=== PATIENT | female | born 1990 ===

== ENCOUNTER 2021-09-30 07:54 | Outpatient (REF) | payer OTHER, SELFPAY ==
[2021-09-30 11:29] LABS: MANUAL DIFF FLAG NO
[2021-09-30 11:42] LABS: Basophils Percent Auto 0.2 % (0-2); Eosinophils Absolute Auto 0.1 X10*3/uL (0.0-0.4); Eosinophils Percent Auto 1.9 % (0-4); Hematocrit 42.4 % (37.0-47.0); Hemoglobin 13.9 g/dl (12.0-16.0); Imm Gran Abs Auto 0.03 X10*3/uL (0.00-0.03); Imm Gran Pct Auto 0.5 % (0.0-0.4); Lymphocytes Absolute Auto 1.9 X10*3/uL (1.2-4.9); Lymphocytes Percent Auto 30.4 % (20-40); Mean Corpuscular HGB Conc 32.8 g/dl (31.0-35.0); Mean Corpuscular Volume 88.5 fL (80.0-98.0); Mean Platelet Volume 11.4 fL (9.4-12.3); Monocytes Absolute Auto 0.5 X10*3/uL (0.1-1.2); Monocytes Percent Auto 7.9 % (2-11); Neutrophils Absolute Auto 3.7 x10*3/uL (2.0-8.3); Neutrophils Percent Auto 59.1 % (45-73); Platelet Count 288 X10*3/uL (160-400); Red Blood Count 4.79 X10*6/uL (4.20-5.50); Red Cell Distribution Width 12.9 % (11.0-16.0); White Blood Count 6.2 X10*3/uL (4.8-10.8)
[2021-09-30 12:16] LABS: Alanine Aminotransferase 13 U/L (0-31); Alkaline Phosphatase 78 U/L (39-117); Anion Gap 10 (12-20); Aspartate Amino Transferase 14 U/L (5-31); Bilirubin Total 0.6 mg/dL (0.0-1.0); Blood Urea Nitrogen 12 mg/dL (9-16); Calcium 8.8 mg/dL (8.4-10.2); Carbon Dioxide 26 mmol/L (22-29); Chloride 108 mmol/L (96-108); Cholesterol 203 mg/dL; Estimated Glomerular Filt Rate > 60; Glucose Fasting 105 mg/dL (60-99); HDL Cholesterol 47 mg/dL; LDL Cholesterol Calculated 134 mg/dl; Potassium 4.3 mmol/L (3.3-5.1); Sodium 140 mmol/L (135-145); Total Protein 6.7 g/dL (6.5-8.0); Triglycerides 111 mg/dL
[2021-09-30 12:18] LABS: Thyroid Stimulating Hormone 1.46 uIU/mL (0.32-4.0)
[2021-10-04 13:40] LABS: Vitamin D 25-OH, D2 <4 ng/mL; Vitamin D 25-OH, D3 29 ng/mL; Vitamin D 25-OH, Total 29 ng/mL (30-100)
== END 2021-09-30 07:55 | disposition home or self-care (01) ==
LOC: HO.HMGCLDS 07:54
PROVIDERS: Visit Provider Internal Medicine
DX: Z00.00 Encounter for general adult medical examination without abnormal findings (principal); M25.50 Pain in unspecified joint; E55.9 Vitamin D deficiency, unspecified; E66.3 Overweight; E78.5 Hyperlipidemia, unspecified
CPT/HCPCS: 36415; 80053; 80061; 82306; 84443; 85025

== ENCOUNTER → 2021-11-05 10:49 | Outpatient (BNVA) | payer OTHER, SELFPAY | PROVIDERS: PCP Internal Medicine; Visit Provider Surgery Vascular Surgery | DX: I83.11 Varicose veins of right lower extremity with inflammation (principal) | CPT/HCPCS: 99202 ==

== ENCOUNTER 2021-12-04 08:29 | Outpatient (REF) | payer OTHER, SELFPAY ==
[2021-12-04 14:32] LABS: CT PCR NOT DETECTED (Not Detect.); NG PCR NOT DETECTED (Not Detect.)
[2021-12-05 11:01] LABS: BV Int Neg Control Negative (Negative)
[2021-12-05 11:02] LABS: BV Int Pos Control Positive (Positive)
[2021-12-07 13:02] LABS: HPV mRNA E6/E7 rflx Not Detected (Not Detected)
== END 2021-12-04 08:30 | disposition home or self-care (01) ==
LOC: HO.LAB 08:29
PROVIDERS: PCP Internal Medicine; Visit Provider Advanced Practice Midwife
DX: Z01.419 Encounter for gynecological examination (general) (routine) without abnormal findings (principal); Z80.3 Family history of malignant neoplasm of breast; Z20.2 Contact with and (suspected) exposure to infections with a predominantly sexual mode of transmission; Z11.3 Encounter for screening for infections with a predominantly sexual mode of transmission; Z79.899 Other long term (current) drug therapy
CPT/HCPCS: 87480; 87491; 87510; 87591; 87624; 87660; 88142

== ENCOUNTER 2021-12-13 09:10 | Outpatient (REF) | payer OTHER, SELFPAY ==
--- NOTE | ~2021-12-13 | MM_ITS ---
EXAMINATION: MM SCREENING DIGITAL BREAST TOMOSYNTHESIS, BILATERAL CLINICAL INFORMATION: Screening. Asymptomatic. Prior outside mammography from [place] currently unavailable. Family history breast cancer, mother (age 46). The lifetime risk of breast cancer based on the Tyrer-Cuzick Model is 17%. COMPARISON: None. TECHNIQUE: Digital breast tomosynthesis is performed in both the craniocaudal and mediolateral oblique views along with computer-aided detection (CAD). Synthesized 2D images are generated from the tomosynthesis. FINDINGS: There are scattered areas of fibroglandular density (ACR BI-RADS breast composition Category b). There are no significant masses, abnormal calcifications, or other abnormalities. There is no architectural abnormality. The axilla and skin contours are unremarkable. MM/MM tomosynthesis screening BI IMPRESSION: No mammographic evidence of malignancy. ASSESSMENT: BI-RADS 1: Negative RECOMMENDATION: Routine annual mammography screening by age 36 or earlier as clinical risk factors warrant. This patient's information was entered into a reminder system with a target due date for their next mammogram.
== END 2021-12-13 09:11 | disposition home or self-care (01) ==
LOC: HO.MAMMO 09:10
PROVIDERS: Visit Provider Advanced Practice Midwife
DX: Z12.31 Encounter for screening mammogram for malignant neoplasm of breast (principal); Z80.3 Family history of malignant neoplasm of breast
CPT/HCPCS: 77063; 77067

== ENCOUNTER 2021-12-19 10:33 | Outpatient (REF) | payer OTHER, SELFPAY ==
--- NOTE | ~2021-12-19 | US_ITS ---
EXAMINATION: US LOWER EXTREMITY VENOUS (REFLUX EXAM), BILATERAL CLINICAL INDICATION: This is a 31-year-old female with venous insufficiency and varicose veins. COMPARISON: None. TECHNIQUE: Color flow triplex imaging and compression Doppler was performed to evaluate both the deep and the superficial systems bilaterally. To evaluate the superficial system, the examination was performed in the upright position. Color-flow Doppler ultrasound and compression ultrasound were utilized. In addition, maneuvers were utilized to demonstrate reflux. FINDINGS: 1. DEEP VENOUS ULTRASOUND OF THE RIGHT LOWER EXTREMITY: Common Femoral Vein: Compressible, normal respiratory variation and augmented flow. Femoral vein: Compressible, normal color flow and augmentation. Popliteal Vein: Compressible, normal augmentation. Deep Reflux: There is no evidence of reflux in the deep system in either the common femoral vein or the popliteal vein. There is no evidence of a Reaves's cyst. 2. SUPERFICIAL ULTRASOUND WITH DOPPLER OF RIGHT LOWER EXTREMITY: GREAT SAPHENOUS VEIN: Saphenofemoral Junction: 0.5 cm. There is no reflux. Mid Thigh: 0.4 cm. The reflux time is 2804 ms. Above Knee: 0.2 cm. There is no reflux Below Knee: 0.3 cm. The reflux time is 2692 ms. Mid Calf: 0.2 cm. There is no reflux. Ankle: 0.2 cm. The reflux time is 2840 ms. GSV REFLUX: There is no reflux at the saphenofemoral junction. However, there is reflux in the proximal thigh and mid thigh. DUPLICATED GREAT SAPHENOUS VEIN: None SMALL SAPHENOUS VEIN: Proximal: 0.1 cm. The reflux time is 440 ms. Distal: 0.1 cm. There is no reflux. SSV REFLUX: There is reflux at the saphenofemoral junction but not distally. VEIN OF GIACOMINI: None Imaged. PERFORATORS: There are 0.2 cm mid thigh perforators without reflux. There is a 0.1 cm proximal calf medical coding technician without reflux VARICOSITIES: There is a 0.3 cm mid thigh varicose vein with 2640 ms of reflux. 3. DEEP VENOUS ULTRASOUND OF THE LEFT LOWER EXTREMITY: Common Femoral Vein: Compressible, normal respiratory variation and augmented flow. There is a bifurcating femoral vein present. Femoral Vein: Compressible, normal color flow and augmentation. Popliteal Vein: Compressible, normal augmentation. Deep Reflux: There is no evidence of reflux in the deep system in either the common femoral vein or the popliteal vein. There is no evidence of a Reaves's cyst. 4. SUPERFICIAL ULTRASOUND WITH DOPPLER OF LEFT LOWER EXTREMITY: GREAT SAPHENOUS VEIN: Saphenofemoral Junction: 0.5 cm. There is no reflux. Mid Thigh: 0.3 cm. The reflux time is 2948 ms. Above Knee: 0.4 cm. There is no reflux. Below Knee: 0.2 cm. There is no reflux. Mid Calf: 0.2 cm. There is no reflux. Ankle: 0.2 cm. There is no reflux. GSV REFLUX: There is no reflux at the saphenofemoral junction. There is isolated reflux in the mid thigh. DUPLICATED GREAT SAPHENOUS VEIN: There is a 0.3 cm duplicated lateral great saphenous vein without reflux. SMALL SAPHENOUS VEIN: Proximal: 0.1 cm. The reflux time is 2840 ms. Distal: 0.1 cm. The reflux time is 3120 ms. SSV REFLUX: There is reflux in the small saphenous vein. VEIN OF GIACOMINI: There is a 0.3 cm vein with 2660 ms of reflux. PERFORATORS: There are 0.2 cm perforators without reflux. VARICOSITIES: There are varicose veins off the vein of GIACOMINI measuring 0.3 cm with 3000 164 ms of reflux. These varicose veins reflux and traveled on the posterior calf. US/US venous duplex LE BI IMPRESSION: 1. There is a patent right great saphenous vein without reflux at the junction. The reflux begins in the proximal thigh and the mid thigh. There are also isolated segments below as described. 2. There is a patent right small saphenous vein with reflux at the junction. 3. There are varicose veins present as described on the right. 4. There is a patent left great saphenous vein without reflux in the saphenofemoral junction and proximal thigh. There is isolated reflux in the mid thigh. 5. There is a patent duplicated left lateral great saphenous vein without reflux. 6. There is a patent left small saphenous vein with greater than 2 seconds of reflux at the saphenopopliteal junction. 7. There are varicose veins off of the vein of GIACOMINI with reflux.
== END 2021-12-19 10:34 | disposition home or self-care (01) ==
LOC: HO.US 10:33
PROVIDERS: Visit Provider Surgery Vascular Surgery
DX: I83.11 Varicose veins of right lower extremity with inflammation (principal)
CPT/HCPCS: 93970

== ENCOUNTER → 2022-01-21 15:20 | Outpatient (BNVA) | payer OTHER, SELFPAY | PROVIDERS: PCP Internal Medicine; Visit Provider Surgery Vascular Surgery | DX: I83.11 Varicose veins of right lower extremity with inflammation (principal) | CPT/HCPCS: 99212 ==

== ENCOUNTER → 2022-02-21 07:38 | Outpatient (BNVA) | payer OTHER, SELFPAY | PROVIDERS: PCP Internal Medicine; Visit Provider Surgery Vascular Surgery | DX: I83.11 Varicose veins of right lower extremity with inflammation (principal) | CPT/HCPCS: 36482 ==

== ENCOUNTER → 2022-04-22 10:04 | Outpatient (BNVA) | payer OTHER, SELFPAY | PROVIDERS: PCP Internal Medicine; Visit Provider Surgery Vascular Surgery | DX: I83.11 Varicose veins of right lower extremity with inflammation (principal) | CPT/HCPCS: 99212 ==

== ENCOUNTER 2022-06-18 11:30 | Outpatient (REF) | payer OTHER, SELFPAY ==
--- NOTE | ~2022-06-18 | XR_ITS ---
EXAMINATION: BILATERAL KNEE X-RAY CLINICAL INFORMATION: Pain COMPARISON: None TECHNIQUE: 3 views of each knee FINDINGS: Bone alignment is normal. No fracture or dislocation. Normal joint spaces. No joint effusion. XR/XR knee RT 3V IMPRESSION: Normal knees.
--- NOTE | ~2022-06-18 | XR_ITS ---
EXAMINATION: BILATERAL KNEE X-RAY CLINICAL INFORMATION: Pain COMPARISON: None TECHNIQUE: 3 views of each knee FINDINGS: Bone alignment is normal. No fracture or dislocation. Normal joint spaces. No joint effusion. XR/XR knee LT 3V IMPRESSION: Normal knees.
--- NOTE | ~2022-06-18 | XR_ITS ---
EXAMINATION: XR HAND, RIGHT CLINICAL INFORMATION: Reason for Exam M77.8 - Other enthesopathies, not elsewhere classified COMPARISON: None TECHNIQUE: PA, lateral, and oblique views of the right hand. FINDINGS: The bones and soft tissues are normal. No fracture. Alignment is anatomic. Joint spaces are maintained. No erosions or soft tissue calcifications. XR/XR hand RT min 3V IMPRESSION: Normal right hand.
[2022-06-18 14:50] LABS: Erythrocyte Sedimentation Rate 2 MM/HR (0-20)
[2022-06-18 15:12] LABS: Creatinine Urine 103.03 mg/dL; Protein/Creatinine Ratio, Ur 0.08 (<0.2); Total Protein Urine Random 8 mg/dL (<12)
[2022-06-19 14:48] LABS: SM/Ribonucleoprotein Ab <1.0 NEG AI (<1.0 NEG); Smith Protein <1.0 NEG AI (<1.0 NEG)
[2022-06-19 21:43] LABS: Complement C3 109 mg/dL (83-193)
[2022-06-22 15:13] LABS: Anti Nuclear Antibody Screen NEGATIVE (NEGATIVE)
== END 2022-06-18 11:31 | disposition home or self-care (01) ==
LOC: HO.10HDL 11:30
PROVIDERS: PCP Internal Medicine; Visit Provider Internal Medicine Rheumatology
DX: M25.561 Pain in right knee (principal); M25.562 Pain in left knee; M77.8 Other enthesopathies, not elsewhere classified; R76.8 Other specified abnormal immunological findings in serum; M25.50 Pain in unspecified joint
CPT/HCPCS: 36415; 73130; 73562; 84156; 85652; 86038; 86039; 86140; 86160; 86235; 99202

== ENCOUNTER 2022-09-03 09:57 | Outpatient (REF) | payer OTHER, SELFPAY | END 2022-09-03 09:58 | disposition home or self-care (01) | LOC: CF 09:57 | PROVIDERS: PCP Internal Medicine; Visit Provider Internal Medicine | DX: K21.9 Gastro-esophageal reflux disease without esophagitis (principal); K59.00 Constipation, unspecified; R11.10 Vomiting, unspecified; R79.89 Other specified abnormal findings of blood chemistry | CPT/HCPCS: 99202 ==

== ENCOUNTER 2022-09-05 09:00 | Outpatient (REF) | payer OTHER, SELFPAY ==
[2022-09-05 11:28] LABS: MANUAL DIFF FLAG NO
[2022-09-05 11:39] LABS: Basophils Percent Auto 0.2 % (0-2); Eosinophils Percent Auto 0.9 % (0-4); Hematocrit 41.3 % (37.0-47.0); Hemoglobin 13.9 g/dl (12.0-16.0); Imm Gran Abs Auto 0.03 X10*3/uL (0.00-0.03); Imm Gran Pct Auto 0.7 % (0.0-0.4); Lymphocytes Absolute Auto 1.4 X10*3/uL (1.2-4.9); Lymphocytes Percent Auto 31.1 % (20-40); Mean Corpuscular HGB Conc 33.7 g/dl (31.0-35.0); Mean Corpuscular Hemoglobin 28.7 pg (27.0-33.0); Mean Corpuscular Volume 85.3 fL (80.0-98.0); Mean Platelet Volume 10.8 fL (9.4-12.3); Monocytes Absolute Auto 0.4 X10*3/uL (0.1-1.2); Monocytes Percent Auto 9.1 % (2-11); Neutrophils Absolute Auto 2.6 x10*3/uL (2.0-8.3); Platelet Count 291 X10*3/uL (160-400); Red Blood Count 4.84 X10*6/uL (4.20-5.50); Red Cell Distribution Width 13.1 % (11.0-16.0); White Blood Count 4.4 X10*3/uL (4.8-10.8)
[2022-09-05 12:37] LABS: Vitamin D 25-OH Total 40.8 ng/mL (>30)
[2022-09-08 16:34] LABS: Immunoglobulin A 191 mg/dL (47-310)
[2022-09-12 13:58] LABS: Transglutaminase IgA <1.0 U/mL
== END 2022-09-05 09:01 | disposition home or self-care (01) ==
LOC: HO.HMGCLDS 09:00
PROVIDERS: Visit Provider Internal Medicine
DX: K21.9 Gastro-esophageal reflux disease without esophagitis (principal); E55.9 Vitamin D deficiency, unspecified
CPT/HCPCS: 36415; 82306; 82784; 85025; 86364; 87338

== ENCOUNTER 2022-09-25 09:01 | Outpatient (REF) | payer OTHER, SELFPAY ==
--- NOTE | ~2022-09-25 | US_ITS ---
EXAMINATION: US ABDOMEN COMPLETE CLINICAL INFORMATION: Vomiting, unspecified. COMPARISON: None available. TECHNIQUE: Real-time imaging of the abdominal viscera. FINDINGS: PANCREAS: Normal. ABDOMINAL AORTA: The proximal, mid, and distal segments are normal in caliber. INFERIOR VENA CAVA: Visualized portions are normal. LIVER: Normal. The liver is normal in size. The liver contour is normal. Parenchymal echogenicity is normal. No focal hepatic lesion. There is no intrahepatic biliary duct dilatation seen. GALLBLADDER: Normal. The gallbladder is physiologically distended without evidence of stones, sludge, polyps, wall thickening or pericholecystic fluid. COMMON BILE DUCT: Normal in caliber measuring 0.41 cm in diameter. RIGHT KIDNEY: Normal. No hydronephrosis. No renal calculi or focal parenchymal lesions. The kidney measures 11.0 cm in maximum dimension. LEFT KIDNEY: Normal. No hydronephrosis. No renal calculi or focal parenchymal lesions. The kidney measures 10.9 cm in maximum dimension. SPLEEN: Normal. The spleen measures 8.2 cm in maximum dimension. FREE FLUID: None. US/US abdomen complete IMPRESSION: Negative study.
== END 2022-09-25 09:02 | disposition home or self-care (01) ==
LOC: HO.HMGCX 09:01
PROVIDERS: PCP Internal Medicine; Visit Provider Internal Medicine
DX: R11.10 Vomiting, unspecified (principal)
CPT/HCPCS: 76700

== ENCOUNTER → 2022-12-03 09:59 | Outpatient (BNVA) | payer OTHER, SELFPAY | PROVIDERS: PCP Internal Medicine; Visit Provider Internal Medicine | DX: K21.9 Gastro-esophageal reflux disease without esophagitis (principal); R11.10 Vomiting, unspecified | CPT/HCPCS: 99212 ==

== ENCOUNTER → 2022-12-08 09:27 | Outpatient (BNVA) | payer OTHER, SELFPAY | PROVIDERS: PCP Internal Medicine; Visit Provider Advanced Practice Midwife ==

== ENCOUNTER 2023-09-24 10:24 | Outpatient (AMB) | payer OTHER, SELFPAY ==
[2023-09-24 10:25] VITALS: BP 110/62; BMI 24.4
--- NOTE | 2023-09-24 10:25 | MHC.PC.OV ---
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: No Accompanied by: Self / Same As Patient Allergies No Known Allergies Allergy (Verified 09/24/23 10:54) Medication List - Last Reconciled 09/24/23 by Norma Beavers MD No Known Home Meds Tobacco use date assessed: 09/24/23 Dental Screening Dental Screen Date: 09/24/23 Did you have a dental visit in the last 12 months?: Yes Did you have a dental problem in the last 6 months where you did not have access to dental care?: No Was dental information given to patient?: Patient has dentist HPI HPI Comments History of Present Illness Details This is a 33-year-old female that comes today complaining of skin lesions in left arm and upper back that are pruritic and bleed. She is asking for a referral for Dermatology. No chest pain or shortness of breath. Also needs OBGYN referral even though she already has an appointment due to insurance purposes. [facility] Medical History (Updated 09/24/23 @ 11:00 by Norma Beavers MD) Chronic GERD Venous (peripheral) insufficiency Polyarthralgia Physical exam Jaw pain Overweight (BMI 25.0-29.9) Surgical History History of section Family History Mother Breast cancer, Onset Age: 46 Father Diabetes mellitus Social History Housing: Condominium Alcohol intake: current Alcohol intake frequency: a few times a month Alcohol type: beer and hard liquor Patient Tobacco Use Status: Never used Tobacco e-Cigarette/Vaping Use: Never Used Second Hand Smoke Exposure: No service: No Current occupational status: employed Current occupational exposures/hazards: No Cognitive needs: No Hearing needs: No Vision needs: No Female Reproductive History Menstrual Age of Menarche: 12 Questionnaire PHQ-9 Over the last 2 weeks, how often have you been bothered by any of the following problems? 1. Little interest or pleasure in doing things: not at all 2. Feeling down, depressed, or hopeless: not at all 3. Trouble falling or staying asleep, or sleeping too much: not at all 4. Feeling tired or having little energy: not at all 5. Poor appetite or overeating: not at all 6. Feeling bad about yourself - or that you are a failure or have let yourself or your family down: not at all 7. Trouble concentrating on things, such as reading the newspaper or watching television: not at all 8. Moving or speaking so slowly that other people could have noticed. Or the opposite - being so fidgety or restless that you have been moving around a lot more than usual: not at all 9. Thoughts that you would be better off or of hurting yourself in some way: not at all Total score: 0 Depression Screening Interpretation: Negative Depression Screening Done: Yes 11339 - PHQ-9 Billing: Yes Source: Developed by Drs. Raj Mast, Susana Liang, Dwight Greenfield and colleagues, with an educational emerita from [employer]. Thrive Questionnaire Date Thrive assessed: 09/24/23 I am a: Patient What is your living situation today?: I have a steady place to live Within the past 12 months, did the food you bought not last and you didn't have the money to get more?: Never true Within the past 12 months, did you worry whether your food would run out before you got money to buy more?: Never true Do you have trouble paying for medicines?: No Do you have trouble getting transportation to medical appointments?: No Do you have trouble paying your heating and electricity bill?: No Do you have trouble taking care of your child, family member or friend?: No Do you have trouble with day-to-day activities such as bathing, preparing meals, shopping, managing finances, etc.?: No Are you currently unemployed and looking for a job?: No Are you interested in more education?: No Please select the resources that you would like help with: None Currently or been in a relationship where the following occur: no concerns reported THRIVE Score: 0 AUDIT C Alcohol Use Questionnaire (AUDIT-C) 1. How often do you have a drink containing alcohol?: Monthly or less 2. How many drinks containing alcohol do you have on a typical day when you are drinking?: 1 or 2 3. How often do you have six or more drinks on one occasion?: Never Total Score: 1 EDNA-7 AMB Questionnaire EDNA-7 Date EDNA - 7 assessed: 09/24/23 Feeling nervous, anxious, or on edge: 0 = Not at all Not being able to stop or control worryin = Not at all Worrying too much about different things: 0 = Not at all Trouble relaxin = Not at all Being so restless that it is hard to sit still: 0 = Not at all Becoming easily annoyed or irritable: 0 = Not at all Feeling afraid as if something awful might happen: 0 = Not at all Total EDNA-7 score (0-4 normal; 5-9 mild; 10-14 moderate; 15-21 severe): 0 Source: Developed by Drs. Raj Mast, Susana Liang, Dwight Greenfield and colleagues, with an educational emerita from [employer]. EDNA-7 Assessment Billing EDNA-7 Assessment Tool: EDNA-7 Assessment 07191 Review of Systems Const All systems reviewed & are unremarkable except as noted in HPI and below Eyes Reports no additional complaints, Denies change in vision and Denies other visual disturbances Card Denies chest pain at rest, Denies chest pain with activity, Denies edema, Denies irregular heart rhythm, Denies claudication, Denies dyspnea, Denies dyspnea on exertion, Denies orthopnea, Denies paroxysmal nocturnal dyspnea and Denies slow heart rate Resp Denies cough, Denies dyspnea and Denies dyspnea on exertion GI Denies abdominal pain, Denies change in bowel habits, Denies excessive flatus, Denies nausea and Denies vomiting Denies urinary incontinence, Denies urinary hesitancy and Denies urinary urgency Musc Denies atrophy, Denies deformity and Denies limited range of motion Skin/Breast Denies bleeding lesions, Denies changing lesions and Denies rash Physical exam (Primary Care) Vital Signs: Last Vital Signs BP 110/62 09/24/23 10:25 BMI result Body Mass Index 24.4 Tobacco/Smoking Status: Tobacco use Status Tobacco use date assessed 09/24/23 09/24/23 10:33 Patient Tobacco Use Status Never used Tobacco 09/24/23 10:33 e-Cigarette/Vaping Use Never Used 09/24/23 10:33 PHQ-9: PHQ-9 Score PHQ-9: Total score 0 09/24/23 11:04 Depression Screening Interpretation: Negative Thrive Assessment: Date of Thrive Assessment Date Thrive assessed 09/24/23 09/24/23 10:33 Currently or been in a relationship where the following occur: no concerns reported Neck Neck: Yes normal visual inspection and Yes supple Resp Effort & Inspection: normal respiratory effort Auscultation: clear to auscultation bilaterally Cardio Jugular venous distension: no JVD Rate: regular rate Rhythm: regular rhythm Heart sounds: S1 normal heart sound present and S2 normal heart sound present Extrem General: Yes full ROM Assessment and Plan Assessment & Plan (1) Skin lesion: Code(s): L98.9 - Disorder of the skin and subcutaneous tissue, unspecified Plan: Referred to dermatology. Orders: Orders Vitamin D 25-OH Total Today E55.9 - Vitamin D deficiency, unspecified Comprehensive [place]. Panel Fast Today K21.9 - Gastro-esophageal reflux disease without esophagitis Complete Blood Count Auto Diff Today K21.9 - Gastro-esophageal reflux disease without esophagitis Lipid Panel Today E78.5 - Hyperlipidemia, unspecified Referrals Dermatology Referral L98.9 - Disorder of the skin and subcutaneous tissue, unspecified PASTRY ARTIST Referral Z01.419 - Encounter for gynecological examination (general) (routine) without abnormal findings Coding Level of Care Code Est Pt Level 3 (67777) Diagnoses Skin lesion L98.9 Additional Codes EDNA-7 Assessment Billing - EDNA-7 Assessment Tool: EDNA-7 Assessment 30019 ([id number]) Time Spent (min) 18
== END 2023-09-24 11:05 | disposition home or self-care (01) ==
PROVIDERS: PCP Internal Medicine; Visit Provider Internal Medicine
DX: L98.9 Disorder of the skin and subcutaneous tissue, unspecified (principal)
CPT/HCPCS: 99213

== ENCOUNTER 2023-11-20 07:58 | Outpatient (REF) | payer OTHER, SELFPAY ==
[2023-11-20 10:32] LABS: MANUAL DIFF FLAG NO
[2023-11-20 10:36] LABS: Basophils Percent Auto 0.2 % (0-2); Eosinophils Absolute Auto 0.1 X10*3/uL (0.0-0.4); Eosinophils Percent Auto 1.5 % (0-4); Hematocrit 37.4 % (37.0-47.0); Hemoglobin 12.2 g/dl (12.0-16.0); Imm Gran Abs Auto 0.02 X10*3/uL (0.00-0.03); Imm Gran Pct Auto 0.5 % (0.0-0.4); Lymphocytes Absolute Auto 1.6 X10*3/uL (1.2-4.9); Lymphocytes Percent Auto 39.4 % (20-40); Mean Corpuscular HGB Conc 32.6 g/dl (31.0-35.0); Mean Corpuscular Hemoglobin 26.4 pg (27.0-33.0); Mean Platelet Volume 10.9 fL (9.4-12.3); Monocytes Absolute Auto 0.4 X10*3/uL (0.1-1.2); Monocytes Percent Auto 8.9 % (2-11); Neutrophils Percent Auto 49.5 % (45-73); Platelet Count 279 X10*3/uL (160-400); Red Blood Count 4.62 X10*6/uL (4.20-5.50); Red Cell Distribution Width 13.6 % (11.0-16.0); White Blood Count 4.1 X10*3/uL (4.8-10.8)
[2023-11-20 11:26] LABS: Alanine Aminotransferase 15 U/L (0-31); Albumin Level 3.9 g/dL (3.5-5.0); Alkaline Phosphatase 63 U/L (39-117); Anion Gap 11 (12-20); Aspartate Amino Transferase 16 U/L (5-31); Bilirubin Total 0.4 mg/dL (0.0-1.0); Blood Urea Nitrogen 11 mg/dL (9-16); Calcium 8.5 mg/dL (8.4-10.2); Carbon Dioxide 25 mmol/L (22-29); Chloride 107 mmol/L (96-108); Cholesterol 235 mg/dL (<200); Estimated Glomerular Filt Rate > 60; Glucose Fasting 95 mg/dL (60-99); HDL Cholesterol 58 mg/dL (>40); LDL Cholesterol Calculated 163 mg/dL (<100); Potassium 4.4 mmol/L (3.3-5.1); Sodium 139 mmol/L (135-145); Total Protein 6.6 g/dL (6.5-8.0); Triglycerides 71 mg/dL (<150); Vitamin D 25-OH Total 41.9 ng/mL (>30)
== END 2023-11-20 07:59 | disposition home or self-care (01) ==
LOC: HO.HMGCLDS 07:58
PROVIDERS: PCP Internal Medicine; Visit Provider Internal Medicine
DX: E55.9 Vitamin D deficiency, unspecified (principal); K21.9 Gastro-esophageal reflux disease without esophagitis; E78.5 Hyperlipidemia, unspecified
CPT/HCPCS: 36415; 80053; 80061; 82306; 85025

== ENCOUNTER 2023-12-16 15:47 | Outpatient (AMB) | payer OTHER, SELFPAY ==
[2023-12-16 15:50] VITALS: BP 110/62; BMI 24.5
--- NOTE | 2023-12-16 15:50 | A.OFFPC_ITS ---
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 Last Pap smear was 2021 and was normal. No chest pain or shortness on breath. Doing well. [facility] Medical History (Updated 12/16/23 @ 16:30 by Norma Beavers MD) Physical exam Chronic GERD Venous (peripheral) insufficiency Polyarthralgia Jaw pain Overweight (BMI 25.0-29.9) Surgical History Skin lesion History of section Family History Mother Breast cancer, Onset Age: 46 Father Diabetes mellitus Social History Housing: Condominium Alcohol intake: current Alcohol intake frequency: a few times a month Alcohol type: beer and hard liquor Patient Tobacco Use Status: Never used Tobacco e-Cigarette/Vaping Use: Never Used Second Hand Smoke Exposure: No service: No Current occupational status: employed Current occupational exposures/hazards: No Cognitive needs: No Hearing needs: No Vision needs: No Female Reproductive History Menstrual Age of Menarche: 12 Questionnaire Thrive Questionnaire Date Thrive assessed: 09/24/23 EDNA-7 AMB Questionnaire EDNA-7 Date EDNA - 7 assessed: 09/24/23 Source: Developed by Drs. Raj Mast, Susana Liang, Dwight Greenfield and colleagues, with an educational emerita from [employer]. Review of Systems Const All systems reviewed & are unremarkable except as noted in HPI and below Eyes Reports no additional complaints, Denies change in vision and Denies other visual disturbances Card Denies chest pain at rest, Denies chest pain with activity, Denies edema, Denies irregular heart rhythm, Denies claudication, Denies dyspnea, Denies dyspnea on exertion, Denies orthopnea, Denies paroxysmal nocturnal dyspnea and Denies slow heart rate Resp Denies cough, Denies dyspnea and Denies dyspnea on exertion Neuro Denies lack of coordination Physical exam (Primary Care) Vital Signs: Last Vital Signs BP 110/62 12/16/23 15:50 BMI result Body Mass Index 24.5 Tobacco/Smoking Status: Tobacco use Status Tobacco use date assessed 09/24/23 12/16/23 15:54 Patient Tobacco Use Status Never used Tobacco 12/16/23 15:54 e-Cigarette/Vaping Use Never Used 12/16/23 15:54 Thrive Assessment: Date of Thrive Assessment Date Thrive assessed 09/24/23 12/16/23 15:54 Const Orientation/consciousness: patient oriented x3 HENMT Head: Yes normal to inspection, Yes normocephalic and Yes atraumatic Ears: external ears normal Eyes General: appearance normal, both eyes and all related structures Eyelids: Yes eyelids normal Conjunctivae: conjunctivae normal Neck Neck: Yes normal visual inspection and Yes supple Resp Effort & Inspection: normal respiratory effort Auscultation: clear to auscultation bilaterally Cardio Jugular venous distension: no JVD Rate: regular rate Rhythm: regular rhythm Heart sounds: S1 normal heart sound present and S2 normal heart sound present GI Inspection: Yes normal to inspection Palpation (GI): Soft to palpation and nontender Auscultation: normal bowel sounds Skin General skin exam: no rashes or lesions noted Neuro General: patient oriented x3 and no focal motor deficits Extrem General: Yes full ROM Psych Appearance: grossly normal Assessment and Plan Assessment & Plan (1) Encounter for annual physical exam: Code(s): Z00. - Encounter for general adult medical examination without abnormal findings (2) Physical exam: Code(s): Z00.00 - Encounter for general adult medical examination without abnormal findings Plan: Repeat in a year. Coding Level of Care Code Est Pt Prev Care 18-39y(75691) Diagnoses Encounter for annual physical exam Z00. Physical exam Z00.00 Time Spent (min) 31
== END 2023-12-16 16:09 | disposition home or self-care (01) ==
PROVIDERS: PCP Internal Medicine; Visit Provider Internal Medicine
DX: Z00.00 Encounter for general adult medical examination without abnormal findings (principal)
CPT/HCPCS: 99395

== ENCOUNTER 2024-09-23 09:49 | Outpatient (AMB) | payer OTHER, SELFPAY ==
--- NOTE | 2024-09-23 09:54 | A.OFFVIS_ITS ---
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 Complaining of left breast lump with no associated nipple discharge and urinary frequency, no incontinence or dysuria Last Pap/HPV was negative in 12/25 [facility] Medical History Physical exam Chronic GERD Venous (peripheral) insufficiency Polyarthralgia Jaw pain Overweight (BMI 25.0-29.9) Surgical History Skin lesion History of section Family History Mother Breast cancer, Onset Age: 46 Father Diabetes mellitus [facility] Alcohol intake: current Alcohol intake frequency: a few times a month Alcohol type: beer and hard liquor Patient Tobacco Use Status: Never used Tobacco e-Cigarette/Vaping Use: Never Used Second Hand Smoke Exposure: No service: No Current occupational status: employed Current occupational exposures/hazards: No Cognitive needs: No Hearing needs: No Vision needs: No Female Reproductive History Menstrual Age of Menarche: 12 Date of last pap smear: 12/05/21 Review of Systems Const All systems reviewed & are unremarkable except as noted in HPI and below Card Reports as per HPI Resp Reports as per HPI GI Reports as per HPI and Reports no additional complaints Reports as per HPI Physical Exam Const General: cooperative, healthy appearing and comfortable Chest Chest palpation & inspection: normal inspection of the chest and normal palpation of entire chest wall Breast/axilla inspection: normal inspection of the breasts and normal inspection of the axillae Breast/axilla palpation: palpation of the breasts abnormal (R breast wnl, L breast 1 cm lump a 3 o'clock 3 cm from nipple), normal palpation of the axillae and no axillary lymphadenopathy Resp Effort & Inspection: normal respiratory effort Auscultation: clear to auscultation bilaterally Percussion: percussion normal Cardio Palpation: normal PMI Rate: regular rate Rhythm: regular rhythm Heart sounds: no murmurs and no rubs Peripheral pulses: Peripheral pulses 2+ throughout GI Inspection: Yes normal to inspection Palpation (GI): Soft to palpation, nontender, no guarding, not rigid and No hepatosplenomegaly present Percussion: Yes normal to percussion Auscultation: normal bowel sounds Rectal Exam - Female: deferred General: Yes bladder normal to palpation External Female Exam: No lesion Speculum Exam - Vagina: normal appearance of the vagina, normal palpation, normal vaginal discharge and not erythematous Speculum Exam - Cervix: normal appearance of the cervix and normal palpation Bimanual exam- vagina & uterus: normal bimanual exam, normal palpation, uterine size normal, bladder normal to palpation, consistency normal and normal palpation Bimanual Exam- Adnexa, other: normal adnexae, no masses and no tenderness Assessment & Plan Assessment & Plan (1) Well woman exam: Code(s): Z01.419 - Encounter for gynecological examination (general) (routine) without abnormal findings Category: Medical Plan: Cotesting done. Counseled the patient about the recommended dietary allowance of 1000 mg of Calcium & 600 IU of vitamin D. The patient was instructed to perform monthly self-breast exams and to schedule an annual exam in a year; All questions answered and the patient verbalized understanding. Instructed the patient to schedule annual exam in a year (2) Breast lump on left side at 3 o'clock position: Comment: 3 cm from the nipple Code(s): N63.25 - Unspecified lump in the left breast, overlapping quadrants Category: Medical Plan: Discussed with the patient the finding on Breast exam (breast lump) .The differential diagnosis includes but not limited to lump/cyst/pre cancer/cancer or dense breast tissue. The work up includes breast US and diagnostic mammogram and referred the patient for surgical breast consult. Instructed the patient to call our office back in case a referral appointment is not scheduled, missed or canceled so that we will assist on rescheduling another appointment, the patient verbalized understanding agreed with the plan. (3) Urinary frequency: Code(s): R35.0 - Frequency of micturition Category: Medical Plan: Urine dip done in the office was negative. Instructions given the patient to call in case symptoms persist. Orders: Orders MM tomosynthesis diagnostic BI Today N63.25 - Unspecified lump in the left breast, overlapping quadrants US breast LT complete Today N63.25 - Unspecified lump in the left breast, overlapping quadrants Referrals General Surgery Referral N63.25 - Unspecified lump in the left breast, overlapping quadrants Coding Level of Care Code New Pt Prev Care 18-39yr(99505 Diagnoses Well woman exam Z01.419 Breast lump on left side at 3 o'clock position N63.25 Urinary frequency R35.0
== END 2024-09-23 10:41 | disposition home or self-care (01) ==
LOC: HO.HWS 09:49
PROVIDERS: PCP Internal Medicine; Visit Provider Obstetrics & Gynecology
DX: Z01.419 Encounter for gynecological examination (general) (routine) without abnormal findings (principal); N63.25 Unspecified lump in the left breast, overlapping quadrants; R35.0 Frequency of micturition
CPT/HCPCS: 99385; 99459

== ENCOUNTER → 2024-09-23 09:49 | Outpatient (BNVA) | payer OTHER, SELFPAY | PROVIDERS: PCP Internal Medicine; Visit Provider Obstetrics & Gynecology | DX: Z01.419 Encounter for gynecological examination (general) (routine) without abnormal findings (principal); N63.25 Unspecified lump in the left breast, overlapping quadrants; R35.0 Frequency of micturition | CPT/HCPCS: 99385; 99459 ==

== ENCOUNTER → 2024-12-01 10:30 | Outpatient (BNV) | payer OTHER, SELFPAY | PROVIDERS: PCP Internal Medicine; Visit Provider Internal Medicine | DX: N63.25 Unspecified lump in the left breast, overlapping quadrants (principal) | CPT/HCPCS: 76642 ==

== ENCOUNTER 2024-12-01 10:34 | Outpatient (REF) | payer OTHER, SELFPAY ==
--- NOTE | ~2024-12-01 | US_ITS ---
EXAMINATION: US DIAGNOSTIC ULTRASOUND BREAST, LEFT CLINICAL INFORMATION: History 4-year-old female with lateral left breast lump. Patient refused mammogram today.. COMPARISON: Comparison is made with relevant prior imaging. TECHNIQUE: Ultrasound of the breast is performed with real-time spence scale imaging and color Doppler. FINDINGS: Targeted color Doppler ultrasound scanning in the area the patient's palpable lump from 1-5 o'clock demonstrates normal fibronodular breast tissue. No sonographic abnormality is seen. Results are discussed with the patient at time of visit. US/US breast LT limited IMPRESSION: No sonographic abnormality to account for the patient's left breast palpable lump. Patient refuses mammogram today. Recommend clinical evaluation and follow-up. ASSESSMENT: BI-RADS 1: Negative RECOMMENDATION: Recommend clinical evaluation and follow-up. This patient's information was entered into a reminder system with a target due date for their next mammogram. Electronically signed by: Priti Cortez DO 12/01/2024 11:21 AM EDT
--- OUTSIDE RECORDS SUMMARY | 2024-12-01 11:01 | XMS_ITS | Continuity of Care Document ---
Author Name [facility] Organization [facility] Care Team Providers Care Compliance Investigator Name Role Phone [facility] Unavailable Unavailable Medications Combined list of outpatient medications from Department of Defense and Veterans Affairs facilities.Medications provided include 1) outpatient medications from the last 15 months, and 2) patient-reported medications. Medication Details Route Status Patient Instructions Prescription Expires Prescription Number Last Dispense Date Ordering Provider Order Date Order Qty Source betamethaso ne dipropionat e, augmented 0.05% topical ointment betameth asone dipropio isael, augmente d 0.05% topical ointment Start Date: 09/17/20 Status: Ordered Repeat number: 1 Ordered 2021 No Facilit y Access FLUZONE QUAD [id number] (influenza virus vaccine quadrival [id number](6 mos and up)/PF), 60MCG/.5ML, FLUZONE QUAD 2019- 1 (influen za virus vaccine quadriva l 2019-(6 mos and up)/PF), 60MCG/.5 ML, Start Date: 08/09/20 Status: Ordered Repeat number: 1 Ordered 2021 No Facilit y Access omeprazole 20 mg oral delayed release capsule omeprazo le 20 mg oral delayed release capsule Start Date: 09/16/21 Status: Ordered Repeat number: 1 Ordered 2021 No Facilit y Access Immunizations Combined list of available immunizations from the Department of Defense and Veterans Affairs facilities. Immunization Series Date Given Administered By Site Reaction Lot Number CVX Code Drug Primer Inserting Machine Adjuster Status Comments Source COVID-19, mRNA, LNP-S, PF, 30 mcg/0.3 mL dose 2020 [employer] [place] (PFR) Not Given COVID-19, mRNA, LNP-S, PF, 30 mcg/0.3 mL dose [facility] COVID-19, mRNA, LNP-S, PF, 30 mcg/0.3 mL dose 2020 [employer] [place] (PFR) Not Given COVID-19, mRNA, LNP-S, PF, 30 mcg/0.3 mL dose [facility] influenza, injectable, quadrivalent, preservative free 2020 ROSAS, () Not Given influenza , injectabl e, quadrival ent, preservat kimberly free DoD Procedures Combined list of: 1) Procedures from Department of Veterans Affairs facilities going back up to thelast 18 months, not all [place] non-surgical procedures are included; 2) All procedures from the Department of Defense facilities. Procedure Procedure Type Code Date Perfomer Comments Sourc e No data available for this section Ambulatory P harmacy Social History Combined list of available smoking, tobacco, and other social history from Department of Defense and Veterans Affairs facilities. Social History Type Response Date Comment Sourc e This section is an empty social history section. DoD Assessment and Plan Combined list of future care activities from Department of Defense and Veterans Affairs facilities (e.g., assessment and plan notes, appointments, orders, and referrals). Additional future care activities may be listed in the Plan of Care section. Result Assessment and Plan Date Source Assessment and Plan No data available for this section 12/01/2024 Ambulatory Pharmacy Functional Status Combined list of recent functional and cognitive assessments recorded at Department of Defense and [facility] ([place] Functional [place] Measurement (FIM) Scale: 1 = Total Assistance (Subject = 0% +), 2 = Maximal Assistance (Subject = 25% +), 3 = Moderate Assistance (Subject = 50% +), 4 = Minimal Assistance (Subject = 75% +), 5 = Supervision, 6 = Modified [place] (Device), 7 = Complete [place] (Timely, Safely). Assessment Date/Time Source Assessment Type Assessment Skill Assessment Score Assessment Details No data available for this section
== END 2024-12-01 10:35 | disposition home or self-care (01) ==
LOC: HO.MAMMO 10:34
PROVIDERS: PCP Internal Medicine; Visit Provider Obstetrics & Gynecology
DX: N63.25 Unspecified lump in the left breast, overlapping quadrants (principal)
CPT/HCPCS: 76642

== ENCOUNTER 2025-03-21 09:03 | Outpatient (AMB) | payer OTHER, SELFPAY ==
--- NOTE | 2025-03-21 09:06 | A.OFFVIS_ITS ---
Vital Signs 3 03/21/25 09:12 Height 5 ft 3 in Weight 142 lb 4 oz BMI 25.2 BP 119/55 L Blood Pressure Location Lt brachial Position Sitting Pulse 72 Intake Visit Reasons: (L) Breast Lump Intake Note: Patient is seen in office for evaluation of a left breast lump. 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 This was 1st noted several months ago by the patient in the lump has not significantly changed since this time. She does report pain prior to her menstrual cycle but generally has no pain. She denies a prior history of breast surgery. Family history is significant for her mother developing breast cancer at the age of 46. Her mother never underwent genetic testing. The patient is in her 1st child was born when she was 19 years old. Menarche was at 12. She denies any hormone replacement therapy. An ultrasound of the left breast was performed on 12/01/2024. This revealed no sonographic abnormality to account for the patient's left breast palpable lump. The patient declined mammogram. [facility] Medical History Physical exam Chronic GERD Venous (peripheral) insufficiency Polyarthralgia Jaw pain Overweight (BMI 25.0-29.9) Surgical History Skin lesion History of section Family History Mother Breast cancer, Onset Age: 46 Father Diabetes mellitus Social History Housing: Condominium Alcohol intake: current Alcohol intake frequency: a few times a month Alcohol type: beer and hard liquor Patient Tobacco Use Status: Never used Tobacco e-Cigarette/Vaping Use: Never Used Second Hand Smoke Exposure: No service: No Current occupational status: employed Current occupational exposures/hazards: No Cognitive needs: No Hearing needs: No Vision needs: No Female Reproductive History Menstrual Age of Menarche: 12 Date of last menstrual period: 03/21/25 Total pregnancies: 1 Number of Living Children: 1 Review of Systems Const All systems reviewed & are unremarkable except as noted in HPI and below Physical Exam Vital Signs: Last Vital Signs Pulse 72 03/21/25 09:12 BP 119/55 L 03/21/25 09:12 BMI result Body Mass Index 25.2 Const General: cooperative and no acute distress Nutritional Appearance: well nourished Orientation/consciousness: patient oriented x3 Limitations: no limitations HEENT Head: Yes normocephalic and Yes atraumatic Ears: hearing grossly normal bilaterally Chest Other: Left breast: No skin change, no nipple retraction, no nipple discharge, no palpable mass, no enlarged lymph nodes. Normal fibrocystic pattern noted bilaterally especially in the upper outer quadrants. No discrete masses appreciated. Right breast: No skin change, no nipple retraction, no nipple discharge, no palpable mass, no enlarged lymph nodes Chest/axillae images: 2 1. Site of palpable abnormality noted by patient Resp Effort & Inspection: normal respiratory effort, no audible wheezes, no cough and no respiratory distress Cardio Jugular venous distension: no JVD GI Inspection: Yes normal to inspection Skin Other: Warm, dry, no rash Neuro General: patient oriented x3 Extrem General: Yes no clubbing, cyanosis or edema Assessment & Plan Assessment & Plan (1) Family history of breast cancer in first degree relative: Code(s): Z80.3 - Family history of malignant neoplasm of breast Category: Medical (2) Breast lump on left side at 3 o'clock position: Comment: 3 cm from the nipple Code(s): N63.25 - Unspecified lump in the left breast, overlapping quadrants Category: Medical Plan 34-year-old female patient with a family history of breast cancer (mother at age 46), presenting with a palpable mass noted on self-examination in the upper outer quadrant of the left breast. Ultrasound evaluation was negative for any suspicious findings. The patient has never undergone mammogram. Examination today revealed fibrocystic change bilaterally with no discrete suspicious mass to my examination. I recommended observation with a repeat examination in approximately 1 month. Her calculated Tyrer-Cuzick remaining lifetime risk of breast cancer is 15.9%, placing her below the 20% threshold of high risk. We discussed genetic testing and she has declined the testing. Coding Level of Care Code New Pt Level 4 (14038) Diagnoses Family history of breast cancer in first degree relative Z80.3 Breast lump on left side at 3 o'clock position N63.25
[2025-03-21 09:12] VITALS: BP 119/55; PULSE 72; BMI 25.2
== END 2025-03-21 09:30 | disposition home or self-care (01) ==
LOC: HO.HGS 09:04
PROVIDERS: PCP Internal Medicine; Visit Provider Surgery
DX: Z80.3 Family history of malignant neoplasm of breast (principal); N63.25 Unspecified lump in the left breast, overlapping quadrants
CPT/HCPCS: 99204

== ENCOUNTER → 2025-03-21 09:03 | Outpatient (BNVA) | payer OTHER, SELFPAY | PROVIDERS: PCP Internal Medicine; Visit Provider Surgery | DX: N63.25 Unspecified lump in the left breast, overlapping quadrants (principal); Z80.3 Family history of malignant neoplasm of breast | CPT/HCPCS: 99202 ==

== ENCOUNTER 2025-04-14 08:39 | Outpatient (AMB) | payer OTHER, SELFPAY ==
--- NOTE | 2025-04-14 08:44 | A.OFFPC_ITS ---
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 Forensic Required: No Accompanied by: Self / Same As Patient Allergies No Known Allergies Allergy (Verified 04/14/25 09:00) Medication List - Last Reconciled 04/14/25 by Norma Beavers MD No Known Home Meds Tobacco use date assessed: 04/14/25 Dental Screening Dental Screen Date: 04/14/25 Did you have a dental visit in the last 12 months?: Yes Did you have a dental problem in the last 6 months where you did not have access to dental care?: No Was dental information given to patient?: Patient has dentist HPI HPI Comments History of Present Illness Details The patient is a 34-year-old female presenting for her physical exam with chest pain and tachycardia on exertion. The chest pain is described as a pressure in the middle of the chest, sometimes accompanied by a sensation of tachycardia and cough. The patient reports that the pain does not occur at night. The patient has a history of hyperlipidemia, with previous laboratory results indicating elevated cholesterol levels, although not high enough to warrant medication. A repeat cholesterol test is planned to assess current levels. In terms of family history, the patient's mother was diagnosed with breast cancer at the age of 46, and her father has diabetes mellitus. The patient denies any personal history of smoking or alcohol consumption. The patient has not received a tetanus vaccination in over ten years, which is noted as overdue. [facility] Medical History (Updated 04/14/25 @ 09:07 by Norma Beavers MD) Physical exam Chronic GERD Venous (peripheral) insufficiency Polyarthralgia Jaw pain Overweight (BMI 25.0-29.9) Surgical History Skin lesion History of section Family History Mother Breast cancer, Onset Age: 46 Father Diabetes mellitus Social History (Updated 04/14/25 @ 09:06 by Norma Beavers MD) Housing: Condominium Alcohol intake: current Alcohol intake frequency: holidays/special occasions only Alcohol type: beer and hard liquor Patient Tobacco Use Status: Never used Tobacco e-Cigarette/Vaping Use: Never Used Second Hand Smoke Exposure: No service: No Current occupational status: employed Current occupational exposures/hazards: No Cognitive needs: No Hearing needs: No Vision needs: No Female Reproductive History Menstrual Age of Menarche: 12 Questionnaire PHQ-9 Over the last 2 weeks, how often have you been bothered by any of the following problems? 1. Little interest or pleasure in doing things: not at all 2. Feeling down, depressed, or hopeless: not at all 3. Trouble falling or staying asleep, or sleeping too much: not at all 4. Feeling tired or having little energy: not at all 5. Poor appetite or overeating: not at all 6. Feeling bad about yourself - or that you are a failure or have let yourself or your family down: not at all 7. Trouble concentrating on things, such as reading the newspaper or watching television: not at all 8. Moving or speaking so slowly that other people could have noticed. Or the opposite - being so fidgety or restless that you have been moving around a lot more than usual: not at all 9. Thoughts that you would be better off or of hurting yourself in some way: not at all Total score: 0 Depression Screening Interpretation: Negative Depression Screening Done: Yes 21964 - PHQ-9 Billing: Yes Source: Developed by Drs. Raj Mast, Susana Liang, Dwight Greenfield and colleagues, with an educational emerita from [employer]. Thrive Questionnaire Date Thrive assessed: 09/24/23 I am a: Patient What is your living situation today?: I have a steady place to live Within the past 12 months, did the food you bought not last and you didn't have the money to get more?: Never true Within the past 12 months, did you worry whether your food would run out before you got money to buy more?: Never true Do you have trouble paying for medicines?: No Do you have trouble getting transportation to medical appointments?: No Do you have trouble paying your heating and electricity bill?: No Do you have trouble taking care of your child, family member or friend?: No Do you have trouble with day-to-day activities such as bathing, preparing meals, shopping, managing finances, etc.?: No Are you currently unemployed and looking for a job?: No Are you interested in more education?: No Please select the resources that you would like help with: None Currently or been in a relationship where the following occur: No concerns reported THRIVE Score: 0 AUDIT C Alcohol Use Questionnaire (AUDIT-C) 1. How often do you have a drink containing alcohol?: Monthly or less 2. How many drinks containing alcohol do you have on a typical day when you are drinking?: 1 or 2 3. How often do you have six or more drinks on one occasion?: Never Total Score: 1 Score Reviewed/Action Taken: No EDNA-7 AMB Questionnaire EDNA-7 Date EDNA - 7 assessed: 09/24/23 Feeling nervous, anxious, or on edge: 0 = Not at all Not being able to stop or control worryin = Not at all Worrying too much about different things: 0 = Not at all Trouble relaxin = Not at all Being so restless that it is hard to sit still: 0 = Not at all Becoming easily annoyed or irritable: 0 = Not at all Feeling afraid as if something awful might happen: 0 = Not at all Total EDNA-7 score (0-4 normal; 5-9 mild; 10-14 moderate; 15-21 severe): 0 Source: Developed by Drs. Raj Mast, Susana Liang, Dwight Greenfield and colleagues, with an educational emerita from [employer]. EDNA-7 Assessment Billing EDNA-7 Assessment Tool: EDNA-7 Assessment 72475 Review of Systems Const All systems reviewed & are unremarkable except as noted in HPI and below Card Denies chest pain at rest, Denies chest pain with activity, Denies edema, Denies irregular heart rhythm, Denies claudication, Denies dyspnea, Denies dyspnea on e xertion, Denies orthopnea, Denies paroxysmal nocturnal dyspnea and Denies slow heart rate Resp Denies cough, Denies dyspnea and Denies dyspnea on exertion GI Denies abdominal pain, Denies change in bowel habits, Denies excessive flatus, Denies nausea and Denies vomiting Neuro Denies lack of coordination Physical exam (Primary Care) Vital Signs: Last Vital Signs Temp 97.3 F 04/14/25 08:45 Pulse 77 04/14/25 08:45 Resp 18 04/14/25 08:45 BP 110/60 04/14/25 08:45 Pulse Ox 97 04/14/25 08:45 Oxygen Delivery Method Room Air 04/14/25 08:45 BMI result Body Mass Index 25.2 Tobacco/Smoking Status: Tobacco use Status Tobacco use date assessed 04/14/25 04/14/25 08:56 Patient Tobacco Use Status Never used Tobacco 04/14/25 08:56 e-Cigarette/Vaping Use Never Used 04/14/25 08:56 PHQ-9: PHQ-9 Score PHQ-9: Total score 0 04/14/25 08:56 Depression Screening Interpretation: Negative Thrive Assessment: Date of Thrive Assessment Date Thrive assessed 09/24/23 04/14/25 08:56 Currently or been in a relationship where the following occur: No concerns reported HENMT Head: Yes normal to inspection, Yes normocephalic and Yes atraumatic Ears: external ears normal Eyes General: appearance normal, both eyes and all related structures Eyelids: Yes eyelids normal Conjunctivae: conjunctivae normal Neck Neck: Yes normal visual inspection and Yes supple Resp Effort & Inspection: normal respiratory effort Auscultation: clear to auscultation bilaterally Cardio Jugular venous distension: no JVD Rate: regular rate Rhythm: regular rhythm Heart sounds: S1 normal heart sound present and S2 normal heart sound present GI Inspection: Yes normal to inspection Palpation (GI): Soft to palpation and nontender Auscultation: normal bowel sounds Skin General skin exam: no rashes or lesions noted Neuro General: no focal motor deficits Extrem General: Yes full ROM Psych Appearance: grossly normal Coding Level of Care Code Est Pt Level 3 (77960) Est Pt Prev Care 18-39y(41347) Diagnoses Physical exam Z00.00 Chest pain R07.9 Additional Codes PHQ-9 - 04621 - PHQ-9 Billing: Yes ([id number]) EDNA-7 Assessment Billing - EDNA-7 Assessment Tool: EDNA-7 Assessment 53665 ([id number]) Time Spent (min) 31 Assessment & Plan Assessment & Plan (1) Physical exam: Code(s): Z00.00 - Encounter for general adult medical examination without abnormal findings Category: Medical (2) Chest pain: Code(s): R07.9 - Chest pain, unspecified Category: Medical Plan Plan Patient was informed and verbally consented to the use of an ambient scribe for clinic note documentation during this visit. 1. Encounter for general adult medical examination without abnormal findings Z00.00 The patient is advised to update her tetanus vaccination, which is overdue by more than ten years but she decline it today as well as flu vaccine. Pap smear up to date. 2.Chest pain, unspecified R07.9 An electrocardiogram is planned to rule out cardiac causes of the chest pain, although the location of the pain suggests a possible esophageal origin. 3. Tachycardia, unspecified R00.0 The sensation of tachycardia will be evaluated alongside the chest pain with an electrocardiogram to exclude cardiac causes. Orders: Orders Vitamin D 25-OH Total Today E55.9 - Vitamin D deficiency, unspecified ECG 12 lead EKG Today R07.9 - Chest pain, unspecified Lipid Panel Today E78.5 - Hyperlipidemia, unspecified Comprehensive [place]. Panel Fast Today R07.9 - Chest pain, unspecified
[2025-04-14 08:45] VITALS: BP 110/60; PULSE 77; RESP 18; TEMP 36.3; O2SAT 97; BMI 25.2
== END 2025-04-14 09:12 | disposition home or self-care (01) ==
LOC: HO.HMCH 08:40
PROVIDERS: PCP Internal Medicine; Visit Provider Internal Medicine
DX: Z00.00 Encounter for general adult medical examination without abnormal findings (principal); R07.9 Chest pain, unspecified

== ENCOUNTER → 2025-04-14 08:39 | Outpatient (BNVA) | payer OTHER, SELFPAY | PROVIDERS: PCP Internal Medicine; Visit Provider Internal Medicine | DX: Z00.00 Encounter for general adult medical examination without abnormal findings (principal); R07.9 Chest pain, unspecified; R00.0 Tachycardia, unspecified; E78.5 Hyperlipidemia, unspecified; E55.9 Vitamin D deficiency, unspecified | CPT/HCPCS: 96127; 99212 ==

== ENCOUNTER 2025-04-25 09:53 | Outpatient (AMB) | payer OTHER, SELFPAY ==
--- NOTE | 2025-04-25 09:56 | MHC.OFFVIS ---
Vital Signs 04/25/25 10:02 Height 5 ft 3 in Weight 142 lb BMI 25.2 BP 120/63 Blood Pressure Location Lt brachial Position Sitting Pulse 86 Intake Visit Reasons: 1 month follow up (L) Breast Lump Intake Note: Patient is seen in office for one month follow up visit, following left breast lump. 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 As previously noted she is a 34-year-old female patient initially presenting on 03/21/2025 for evaluation of a left breast mass noted on self-examination. This was 1st noted several months prior to examination by the patient and the lump has not significantly changed since this time. She does report pain prior to her menstrual cycle but generally has no pain. She denies a prior history of breast surgery. Family history is significant for her mother developing breast cancer at the age of 46. Her mother never underwent genetic testing. The patient is in her 1st child was born when she was 19 years old. Menarche was at 12. She denies any hormone replacement therapy. An ultrasound of the left breast was performed on 12/01/2024. This revealed no sonographic abnormality to account for the patient's left breast palpable lump. The patient declined mammogram. On previous examination the patient was noted to have diffuse fibrocystic change but no discrete mass appreciated. A follow-up examination one-month was recommended. [facility] Medical History Physical exam Chronic GERD Venous (peripheral) insufficiency Polyarthralgia Jaw pain Overweight (BMI 25.0-29.9) Surgical History Skin lesion History of section Family History Mother Breast cancer, Onset Age: 46 Father Diabetes mellitus Social History Housing: Condominium Alcohol intake: current Alcohol intake frequency: holidays/special occasions only Alcohol type: beer and hard liquor Patient Tobacco Use Status: Never used Tobacco e-Cigarette/Vaping Use: Never Used Second Hand Smoke Exposure: No service: No Current occupational status: employed Current occupational exposures/hazards: No Cognitive needs: No Hearing needs: No Vision needs: No Female Reproductive History Menstrual Age of Menarche: 12 Review of Systems Const All systems reviewed & are unremarkable except as noted in HPI and below Physical Exam Const General: cooperative and no acute distress Nutritional Appearance: well nourished Orientation/consciousness: patient oriented x3 Limitations: no limitations HEENT Head: Yes normocephalic and Yes atraumatic Ears: hearing grossly normal bilaterally Chest Other: Left breast: No skin change, no nipple retraction, no nipple discharge, no palpable mass, no enlarged lymph nodes. Normal fibrocystic pattern noted bilaterally especially in the upper outer quadrants. No discrete masses appreciated. Right breast: No skin change, no nipple retraction, no nipple discharge, no palpable mass, no enlarged lymph nodes Resp Effort & Inspection: normal respiratory effort, no audible wheezes, no cough and no respiratory distress Cardio Jugular venous distension: no JVD GI Inspection: Yes normal to inspection Skin Other: Warm, dry, no rash Neuro General: patient oriented x3 Extrem General: Yes no clubbing, cyanosis or edema Assessment & Plan Assessment & Plan (1) Family history of breast cancer in first degree relative: Code(s): Z80.3 - Family history of malignant neoplasm of breast Category: Medical (2) Fibrocystic breast: Code(s): N60.19 - Diffuse cystic mastopathy of unspecified breast Category: Medical Qualifiers: Laterality: unspecified laterality Qualified Code(s): N60.19 - Diffuse cystic mastopathy of unspecified breast Plan 35-year-old female patient with a strong family history of breast cancer including her mother presenting for re-evaluation of the left breast. Patient is again found to have fibrocystic change in the left breast but also in the right breast with no discrete mass appreciated. Workup with ultrasound was negative for discrete mass. Patient should consider undergoing mammography and genetic testing (previously refused). Exam today reveals no significant change from her prior examination. She should continue with self-examination in his welcome to call for any new concerns. Coding Level of Care Code Est Pt Level 3 (59609) Diagnoses Family history of breast cancer in first degree relative Z80.3 Fibrocystic breast disease (FCBD), unspecified laterality N60.19 Laterality: unspecified laterality
[2025-04-25 10:02] VITALS: BP 120/63; PULSE 86; BMI 25.2
== END 2025-04-25 10:22 | disposition home or self-care (01) ==
LOC: HO.HGS 09:54
PROVIDERS: PCP Internal Medicine; Visit Provider Surgery
DX: Z80.3 Family history of malignant neoplasm of breast (principal); N60.19 Diffuse cystic mastopathy of unspecified breast
CPT/HCPCS: 99213

== ENCOUNTER → 2025-04-25 09:53 | Outpatient (BNVA) | payer OTHER, SELFPAY | PROVIDERS: PCP Internal Medicine; Visit Provider Surgery | DX: N60.12 Diffuse cystic mastopathy of left breast (principal); Z80.3 Family history of malignant neoplasm of breast | CPT/HCPCS: 99212 ==